=== PATIENT | female | born 1980 | race Two or more races ===

== ENCOUNTER 2019-08-11 12:38 | Emergency (ER) | payer SELFPAY ==
[~2019-08-11] VITALS: Ht 165.1 cm; Wt 73.5 kg
[~2019-08-11 12:38] MED LIST: METF500T PO
[2019-08-11 12:45] VITALS: BP 126/79
--- NOTE | 2019-08-11 12:47 | NUR ---
SEEN AND EXAMINED BY FER REDDY
[2019-08-11] MEDS ORDERED: TDAP [DIPH/PERTUSSIS/TET] 0.5 ML VIAL IM ONE ×2 (12:53→13:00)
--- NOTE | 2019-08-11 13:10 | NUR ---
WOUND DRESSING DONE BY [employer].
--- NOTE | 2019-08-11 13:15 | NUR ---
Patient discharged to home in stable condition. Written and verbal after care instructions given. Patient verbalizes understanding of instruction.
== END 2019-08-11 13:23 | disposition home or self-care (01) ==
LOC: ER 12:40
DX: S61.211A Laceration without foreign body of left index finger without damage to nail, initial encounter (principal); E11.9 Type 2 diabetes mellitus without complications; Z79.899 Other long term (current) drug therapy; W26.0XXA Contact with knife, initial encounter; Y93.89 Activity, other specified; Y92.89 Other specified places as the place of occurrence of the external cause; Y99.8 Other external cause status
CPT/HCPCS: 90715

== ENCOUNTER 2020-07-18 07:37 | Emergency (ER) | payer SELFPAY ==
[~2020-07-18] VITALS: Ht 165.1 cm; Wt 70.8 kg
--- NOTE | 2020-07-18 07:50 | NUR ---
PT BIB SELF C/O PAIN AND BURNING UPON URINATION THAT STARTED 'A COUPLE OF DAYS AGO', PT IS AFEBRILE. DENIES NAUSEA AND VOMITING. VS CHECKED. AWAITING MD LONGORIA.
--- NOTE | 2020-07-18 08:00 | NUR ---
PT SEEN BY
[2020-07-18 09:46] LABS: APPEARANCE,URINE SL CLOUDY (CLEAR); BILIRUBIN,URINE NEGATIVE (NEGATIVE); BLOOD, URINE NEGATIVE Ery/uL (NEGATIVE); COLOR,URINE YELLOW (YELLOW); LEUKOCYTE ESTERASE ,URINE TRACE (NEGATIVE); NITRITE, URINE NEGATIVE (NEGATIVE); PROTEIN,URINE NEGATIVE (NEGATIVE); UGLUCOSE >=1000 mg/dL (NEGATIVE)
[2020-07-18 10:09] LABS: RBC,URINE 0-2 /HPF (0-2); SQUAMOUS EPITHELIAL CELL,UR Few /HPF (None Seen); WBC,URINE 21-50 /HPF (0-3)
[2020-07-18 10:10] LABS: BACTERIA,URINE Rare /HPF (None Seen)
--- NOTE | 2020-07-18 10:44 | NUR ---
Patient discharged to home in stable condition. Written and verbal after care instructions given. Patient verbalizes understanding of instruction.
[2020-07-18 10:45] VITALS: BP 129/81
== END 2020-07-18 10:46 | disposition home or self-care (01) ==
LOC: ER 07:40
DX: N39.0 Urinary tract infection, site not specified (principal); E11.9 Type 2 diabetes mellitus without complications; Z79.84 Long term (current) use of oral hypoglycemic drugs
CPT/HCPCS: 81000-TC; 84703-TC; 87086-TC

== ENCOUNTER 2020-08-20 21:00 | Inpatient (IN) | payer MEDICAID ==
[~2020-08-20] VITALS: Ht 162.6 cm; Wt 64.0 kg
--- NOTE | 2020-08-20 21:14 | NUR ---
LORIE 89 FROM HOME FOR C/O CP AND SOB , TESTED + FOR COVID LAST WK +N/V, PT AAOX4, PLACED ON MONITOR, VSS, NAD NOTED PENDING ER PROVIDER SWATI
[2020-08-20] MEDS ORDERED: DEXAMETHASONE SOD PHOSPHATE 10 MG/ML VIAL ONE (22:23)
[2020-08-20] MEDS ORDERED: ACETAMINOPHEN ES 500 MG TABLET ONE (22:24)
[2020-08-20] MEDS ORDERED: DEXAMETHASONE SOD PHOSPHATE 10 MG/ML VIAL IV ONE (22:30)
[2020-08-20] MEDS ORDERED: ACETAMINOPHEN ES 500 MG TABLET PO ONE (22:30)
[2020-08-20] MEDS ORDERED: IV NS 0.9% 1,000 ML BAG IV ONE (22:30)
[2020-08-20 22:46] LABS: BASOPHILS % (AUTO) 0.4 % (0.0-2.0); HEMATOCRIT 51 % (33-45); HEMOGLOBIN 16.2 g/dL (11.5-14.8); LYMPHOCYTES # (AUTO) 0.7 /CMM (0.8-4.8); LYMPHOCYTES % (AUTO) 10.1 % (20.0-44.0); MEAN CORPUSCULAR HGB CONC 32 g/dl (31.0-36.0); MEAN CORPUSCULAR VOLUME 95 fL (82-100); MONOCYTES # (AUTO) 0.5 /CMM (0.1-1.30); NEUTROPHILS # (AUTO) 5.5 /CMM (1.8-8.9); NEUTROPHILS % (AUTO) 82.5 % (43.0-81.0); PLATELET COUNT (AUTO) 271 /CMM (150-450); WHITE BLOOD COUNT (AUTO) 6.6 K/uL (4.3-11.0)
[2020-08-20 23:12] LABS: ALANINE AMINOTRANSFERASE 17 U/L (12-78); ALBUMIN 3.2 g/dL (3.4-5.0); ALKALINE PHOSPHATASE 110 U/L (46-116); ASPARTATE AMINOTRANSFERASE 18 U/L (15-37); B-TYPE NATRIURETIC PEPTIDE 36 PG/ML (0-125); BILIRUBIN,DIRECT 0.1 mg/dL (0.0-0.2); BILIRUBIN,TOTAL 0.4 mg/dL (0.2-1.0); CALCIUM, SERUM 9.1 mg/dL (8.5-10.1); CHLORIDE 100 mmol/L (98-107); CREATININE 0.8 mg/dL (0.6-1.3); POTASSIUM 4.5 mmol/L (3.5-5.1); SODIUM SERUM 135 mmol/L (136-145); TOTAL PROTEIN, SERUM 8.8 g/dL (6.4-8.2); UREA NITROGEN, BLOOD 9 mg/dL (7-18)
[2020-08-20 23:14] LABS: CARBON DIOXIDE 10 mmol/L (21-32); GLUCOSE 384 mg/dL (74-106)
[2020-08-20] MEDS ORDERED: INSULIN REGULAR, HUMAN 100 UNIT in IV NS 0.9% 99 ML IV PRN ×2 (23:30)
[2020-08-20 23:38] LABS: BILIRUBIN,URINE SMALL (NEGATIVE); BLOOD, URINE Trace-lysed Ery/uL (NEGATIVE); COLOR,URINE YELLOW (YELLOW); LEUKOCYTE ESTERASE ,URINE Negative (NEGATIVE); NITRITE, URINE Negative (NEGATIVE); PH,URINE 5.5 (5.0-8.0); PROTEIN,URINE >=300 mg/dl (NEGATIVE); UGLUCOSE 500 MG/DL mg/dL (NEGATIVE); UROBILINOGEN,URINE 0.2 EU/dL (0.2)
[2020-08-21] VITALS (39 sets, daily range): BP systolic 97–141; BP diastolic 59–98
[2020-08-21 00:02] LABS: BACTERIA,URINE Rare /HPF (None Seen); SQUAMOUS EPITHELIAL CELL,UR Few /HPF (None Seen); WBC,URINE NONE SEEN /HPF (0-3)
--- NOTE | 2020-08-21 00:02 | NUR ---
REGULAR INSULIN OUT OF STOCK IN [facility]MN[facility]
--- NOTE | 2020-08-21 01:22 | NUR ---
Call from lab, rapid covid positive.
--- NOTE | 2020-08-21 03:45 | NUR ---
ICU/RN-ADMITTED THIS 39 Y/O FEMALE FROM ER ACCOMPANIED BY ER STAFF PER ACLS PROTOCOL. NURSING FOCUS, ALTERED NUTRITION AND RESPIRATORY STATUS R/T DIAGNOSIS:DKA, COVID 19. AWAKE, ALERT EXPRESSIVE OF NEEDS. BREATHING COMES EASY ON ROOM AIR, SATS.-97%. EKG ST W/ HR-111/MIN. BP-136/78.AFEBRILE-97.7/F. DENIES SOB OR PAIN. PT. IS A FULL CODE.ON CONTACT AND DROPLET PRECAUTIONS, OBSERVED. ON INSULIN DRIP AT 7 UNITS/HR. PER PROTOCOL.
--- NOTE | 2020-08-21 03:52 | NUR ---
pt transported to icu. report given to eliot vora for vahid
[2020-08-21] MEDS ORDERED: HYDROCODONE/APAP 5/325MG TABLET PO PRN (04:00)
[2020-08-21] MEDS ORDERED: MAGNESIUM HYDROXIDE 30 ML UDC PO PRN (04:00)
[2020-08-21] MEDS ORDERED: MAG HYDROX/AL HYDROX/SIMETH 30 ML UDC PO PRN (04:00)
[2020-08-21] MEDS ORDERED: ACETAMINOPHEN 325 MG TABLET PO PRN (04:00)
[2020-08-21] MEDS ORDERED: Z GUARD REMEDY 2 OZ OINT TP PRN (04:00)
[2020-08-21] MEDS: BLOOD SUGAR DIAGNOSTIC 1 EACH STRIP IN SCH ×20 (04:22→23:06)
[2020-08-21] MEDS ORDERED: CEFTRIAXONE 1 G VIAL ONE (04:30)
[2020-08-21] MEDS ORDERED: IV NS 0.9% 250 ML IV PRN (04:30)
[2020-08-21] MEDS ORDERED: IV D5/0.45 NACL 1,000 ML IV PRN (04:30)
[2020-08-21] MEDS: ENOXAPARIN SODIUM 40 MG/0.4 ML DISP.SYRIN SQ SCH (04:32)
[2020-08-21] MEDS: CEFTRIAXONE 1 G in IV D5W 50 ML IV SCH (04:33)
[2020-08-21] MEDS ORDERED: POTASSIUM CL. PREMIX PERIPHER. 50 ML IV PRN (05:00)
[2020-08-21] MEDS: INSULIN REGULAR, HUMAN 100 UNIT in IV NS 0.9% 99 ML IV PRN ×4 (05:10→12:26)
[2020-08-21] MEDS ORDERED: AZITHROMYCIN 500 MG VIAL ONE (05:11)
[2020-08-21] MEDS: IV D5/0.45 NACL 1,000 ML IV PRN ×3 (05:11→23:52)
[2020-08-21] MEDS: AZITHROMYCIN 500 MG in IV D5W 250 ML IV SCH (05:20)
[2020-08-21 05:36] LABS: CALCIUM, SERUM 8.4 mg/dL (8.5-10.1); CREATININE 0.7 mg/dL (0.6-1.3); POTASSIUM 3.7 mmol/L (3.5-5.1)
[2020-08-21] MEDS: ONDANSETRON HCL/PF 4 MG/2 ML VIAL IVP PRN (06:20)
--- NOTE | 2020-08-21 06:21 | NUR ---
ICU/RN-PT. VERY NAUSEATED, MEDICATED W/ ZOFRAN 4MG SIVP. WILL REASSESS FOR PRN EFFECTIVENESS
--- NOTE | 2020-08-21 07:25 | NUR ---
ICU/RN PT IS ON RA ,SAT O2-98%.V/S STABKLE ,AFEBRILE.COVID-19 POSITIVE.HAS DKA ON INSULIN DRIP .PERIFERAL IV ORDERED.USE BEDPAN.RESTING IN THE BED.NO NAUSEA.NO PAIN REPORTED AT THIS TIME.LABS REVIEW.
[2020-08-21] MEDS ORDERED: GLIM4TAB37 PO (07:28)
[2020-08-21] MEDS ORDERED: DEXAMETHASONE SOD PHOSPHATE 10 MG/ML VIAL IJ SCH (09:00)
--- NOTE | 2020-08-21 09:00 | NUR ---
ICU/RN DUE MEDS ARE GIVEN ORDERED.PT EAT HER BREAKFAST.
[2020-08-21] MEDS: POTASSIUM CL. PREMIX PERIPHER. 50 ML IV PRN ×8 (10:25→22:48)
[2020-08-21 12:28] LABS: CALCIUM, SERUM 8.2 mg/dL (8.5-10.1); CREATININE 0.6 mg/dL (0.6-1.3); POTASSIUM 3.4 mmol/L (3.5-5.1)
[2020-08-21 18:08] LABS: CALCIUM, SERUM 8.4 mg/dL (8.5-10.1); CREATININE 0.7 mg/dL (0.6-1.3); POTASSIUM 3.5 mmol/L (3.5-5.1)
--- NOTE | 2020-08-21 19:30 | NUR ---
RN NOTE RECEIVED PATIENT IN BED RESTING ALERT ORIENTED X4 VERBALLY RESPONSIVE NO SOB NOT ACUTE DISTRESS NOTED,ON ROOM AIR O2:97% IV SITE IS ON RIGHT AC AND LEFT AC INTACT PATENT FLUSHED ON INSULIN DRIP 12UNIT/HR ON D51/2 NS IV HYDRATION 100CC/HR EVERY HOUR BLOOD SUGAR CHECK,ON ALGORITHM #4 ON POTASSIUM IV,CONTINENT TO BOWEL/BLADDER,CALL LIGHT WITHIN REACH,BED IN LOW POSITION AND LOCKED CONTINUE TO MONITOR
--- NOTE | 2020-08-21 20:00 | NUR ---
RN NOTE BS IS 289 INSULIN RUNNING 12UNIT/HR NO CHANGES IN RATE CONTINUE TO MONITOR.
--- NOTE | 2020-08-21 21:00 | NUR ---
RN NOTE ACCU-CHEK DONE BLOOD SUGAR IS 242 INSULIN DECREASED TO 7UNIT/HR CONTINUE TO MONITOR.
--- NOTE | 2020-08-21 22:00 | NUR ---
RN NOTE ACCU-CHEK DONE BLOOD SUGAR IS 204 INSULIN 7UNIT/HR RUNNING CONTINUE TO MONITOR.
--- NOTE | 2020-08-21 23:00 | NUR ---
RN NOTE ACCU-CHEK DONE BLOOD SUGAR IS 205 INSULIN DRIP IS 7UNIT/HR CONTINUE TO MONITOR
[2020-08-21 23:30] LABS: CREATININE 0.6 mg/dL (0.6-1.3); POTASSIUM 3.7 mmol/L (3.5-5.1)
[2020-08-22] VITALS (28 sets, daily range): BP systolic 83–125; BP diastolic 54–95
[2020-08-22] MEDS: BLOOD SUGAR DIAGNOSTIC 1 EACH STRIP IN SCH ×13 (00:14→11:51)
[2020-08-22] MEDS: POTASSIUM CL. PREMIX PERIPHER. 50 ML IV PRN ×2 (01:28→11:51)
[2020-08-22] MEDS: CEFTRIAXONE 1 G in IV D5W 50 ML IV SCH (04:14)
[2020-08-22] MEDS: AZITHROMYCIN 500 MG in IV D5W 250 ML IV SCH (04:17)
[2020-08-22] MEDS: INSULIN REGULAR, HUMAN 100 UNIT in IV NS 0.9% 99 ML IV PRN ×4 (04:25→09:09)
[2020-08-22 04:34] LABS: BASOPHILS % (AUTO) 0.5 % (0.0-2.0); HEMATOCRIT 41 % (33-45); HEMOGLOBIN 13.6 g/dL (11.5-14.8); LYMPHOCYTES # (AUTO) 1.2 /CMM (0.8-4.8); LYMPHOCYTES % (AUTO) 12.9 % (20.0-44.0); MEAN CORPUSCULAR HGB CONC 34 g/dl (31.0-36.0); MEAN CORPUSCULAR VOLUME 90 fL (82-100); MONOCYTES # (AUTO) 0.7 /CMM (0.1-1.30); MONOCYTES % (AUTO) 8.3 % (2.0-12.0); NEUTROPHILS % (AUTO) 78.3 % (43.0-81.0); PLATELET COUNT (AUTO) 272 /CMM (150-450); RED BLOOD CELL COUNT(AUTO) 4.52 MIL/uL (4.0-5.2); WHITE BLOOD COUNT (AUTO) 8.9 K/uL (4.3-11.0)
[2020-08-22 04:51] LABS: CALCIUM, SERUM 8.2 mg/dL (8.5-10.1); CREATININE 0.5 mg/dL (0.6-1.3); MAGNESIUM 1.9 mg/dL (1.8-2.4); PHOSPHORUS 1.1 mg/dL (2.5-4.9); POTASSIUM 3.6 mmol/L (3.5-5.1)
--- NOTE | 2020-08-22 07:15 | NUR ---
RN NOTE PATIENT REMAINS ALERT ORIENTED X4 VERBALLY RESPONSIVE ON ROOM AIR O2:98% NO SON NOT ACUTE DISTRESS NOTED ON INSULIN DRIP CHECKED BLOOD SUGAR EVERY HOUR,ALL DUE MEDS GIVEN MD ORDERED,KEPT CLEAN AND DRY ALL THE TIME,KEPT COMFORTABLE,ALL NEEDS MET ENDORSE NEXT COMING SHIFT FOR CONTINUATION OF CARE.
--- NOTE | 2020-08-22 07:50 | NUR ---
ICU/RN PT IS RESTING IN THE BED ON ROOM AIR,SAT O2-97%.V/S STABLE,AFEBRILE.NO PAIN REPORTED AT THIS TIME.ON INSULIN DRIP .ANION GAP 15.IV INFUSING ORDERED.
[2020-08-22] MEDS: ONDANSETRON HCL/PF 4 MG/2 ML VIAL IVP PRN ×2 (08:28→13:30)
[2020-08-22] MEDS: ENOXAPARIN SODIUM 40 MG/0.4 ML DISP.SYRIN SQ SCH (08:28)
--- NOTE | 2020-08-22 08:30 | NUR ---
ICU/RN PT C/O OF NAUSEA.ZOFRAN IV GIVEN ORDERED.
[2020-08-22] MEDS: IV D5/0.45 NACL 1,000 ML IV PRN (10:59)
[2020-08-22 11:33] LABS: CALCIUM, SERUM 7.9 mg/dL (8.5-10.1); CREATININE 0.6 mg/dL (0.6-1.3)
[2020-08-22] MEDS ORDERED: DEXTROSE 50%-WATER 50 ML DISP.SYRIN IV PRN (12:00)
[2020-08-22] MEDS: BLOOD SUGAR DIAGNOSTIC 1 EACH STRIP VI SCH ×3 (12:18→22:24)
[2020-08-22] MEDS: POTASSIUM CL. PREMIX PERIPHER. 50 ML IV SCH ×5 (12:18→16:00)
--- NOTE | 2020-08-22 12:30 | NUR ---
ICU/RN PT TRANSFERED TO TELE UNIT IN STABLE CONDITION.OFF INSULIN DRIP.DUE MEDS ARE GIVEN ORDERED.
[2020-08-22] MEDS: POTASSIUM PHOSPHATE MM 15 MMOL in IV NS 0.9% 250 ML IV SCH ×2 (12:33→16:41)
[2020-08-22] MEDS: INSULIN REGULAR, HUMAN 100 UNIT/ML 3 ML VIAL SQ PRN ×2 (12:33→18:37)
--- NOTE | 2020-08-22 12:45 | NUR ---
RN NOTES RECEIVED PT FROM ICU. A/O X4. IV SITES ON R AC, L AC AND CARRI MIDLINE ALL INTACT, PATENT AND FLUSHED. DIABETIC DIET. NO PAIN REPORTED AT THIS TIME. ON RA SATURATING @100%. NO SOB OR ANY ACUTE DISTRESS AT THIS TIME. SAFETY MEASURES IN PLACE. CALL LIGHT WITHIN REACH. BED LOCKED AND AT LOWEST POSITION WITH SIDE RAILS UP X2. WILL CONTINUE TO MONITOR
--- NOTE | 2020-08-22 13:56 | NUR ---
RELAYED POSITIVE PCR RESULT RELAYED TO TESHA MANCINI
[2020-08-22 14:47] LABS: CREATININE 0.5 mg/dL (0.6-1.3); POTASSIUM 3.6 mmol/L (3.5-5.1)
--- NOTE | 2020-08-22 20:00 | NUR ---
RN NOTES PT RESTING IN BED. A/O X4. IV SITES ON R AC, L AC AND CARRI MIDLINE ALL INTACT, PATENT AND FLUSHED. NO PAIN REPORTED AT THIS TIME. ON RA SATURATING @100%. NO SOB OR ANY ACUTE DISTRESS AT THIS TIME.BLOOD SUGAR OF 265, 9 UNITS INSULIN GIVEN PER SLIDING SCALE. SAFETY MEASURES IN PLACE. CALL LIGHT WITHIN REACH. BED LOCKED AND AT LOWEST POSITION WITH SIDE RAILS UP X2. WILL ENDORSE TO NIGHT NURSE FOR SERAFIN
--- NOTE | 2020-08-22 20:05 | NUR ---
RN OPENING NOTES PATIENT IN BED, ALERT AND ORIENTED X 4. DENIES ANY SOB, O2 SAT AT 98 % ON ROOM AIR. ON TELE MONITOR SHOWS SR HR 85. DENIES PAIN AT THIS TIME. WITH RIGHT UPPER ARM MIDLINE AND LEFT AC IV BOTH PATENT AND INTACT, FLUSHED, NO SIGNS OF INFECTION. ALL SAFETY MEASURES IMPLEMENTED. CALL LIGHT WITHIN REACH, BED LOCKED IN LOWEST POSITION SIDE RAILS UP X 2.
[2020-08-22] MEDS ORDERED: INSULIN GLARGINE, 100 UNIT/ML CARTRIDGE SQ SCH (22:00)
--- NOTE | 2020-08-22 22:30 | NUR ---
2230 PATIENT WITH COMPLAIN OF COUGHING AND IS REQUESTING FOR COUGH MEDICATION,SOMMER CHAPMAN MADE AWARE WITH ORDER MADE. ORDER NOTED AND CARRIED OUT.
[2020-08-22] MEDS: *INSULIN REGULAR(HUMULIN R)HUM 100 UNIT/ML VIAL SQ PRN (22:31)
[2020-08-23] MEDS ORDERED: GUAIFENESIN/D-METHORPHAN HB 5 ML UDC ONE (00:43)
[2020-08-23] MEDS: GUAIFENESIN/D-METHORPHAN HB 5 ML UDC PO PRN ×2 (01:05→15:40)
--- NOTE | 2020-08-23 01:05 | NUR ---
ROBUTISSIN DM 10 ML GIVEN TO PATIENT DUE TO COUGH.
[2020-08-23] MEDS: CEFTRIAXONE 1 G in IV D5W 50 ML IV SCH (03:52)
[2020-08-23 04:00] VITALS: BP 107/67
[2020-08-23] MEDS: AZITHROMYCIN 500 MG in IV D5W 250 ML IV SCH (04:35)
[2020-08-23] MEDS: ONDANSETRON HCL/PF 4 MG/2 ML VIAL IVP PRN ×2 (04:56→09:11)
[2020-08-23] MEDS ORDERED: POTASSIUM CL. PREMIX PERIPHER. 50 ML IV PRN ×2 (06:00)
[2020-08-23 07:05] LABS: BASOPHILS % (AUTO) 0.7 % (0.0-2.0); EOSINOPHILS % (AUTO) 0.3 % (0.0-6.0); HEMATOCRIT 39 % (33-45); LYMPHOCYTES % (AUTO) 15.9 % (20.0-44.0); MEAN CORPUSCULAR HGB CONC 33 g/dl (31.0-36.0); MEAN CORPUSCULAR VOLUME 90 fL (82-100); MONOCYTES # (AUTO) 0.8 /CMM (0.1-1.30); MONOCYTES % (AUTO) 12.7 % (2.0-12.0); NEUTROPHILS # (AUTO) 4.6 /CMM (1.8-8.9); NEUTROPHILS % (AUTO) 70.4 % (43.0-81.0); PLATELET COUNT (AUTO) 259 /CMM (150-450); RED BLOOD CELL COUNT(AUTO) 4.32 MIL/uL (4.0-5.2); WHITE BLOOD COUNT (AUTO) 6.6 K/uL (4.3-11.0)
[2020-08-23 07:20] LABS: CALCIUM, SERUM 8.1 mg/dL (8.5-10.1); CREATININE 0.4 mg/dL (0.6-1.3); MAGNESIUM 1.8 mg/dL (1.8-2.4); POTASSIUM 3.7 mmol/L (3.5-5.1)
--- NOTE | 2020-08-23 07:24 | NUR ---
RN NOTES PATIENT IN BE SLEEPING, EASILY AROUSABLE BY VERBAL AND TOUCH STIMULI. BREATHING EVEN AND UNLABORED. DENIES SOB. ALL DUE IV ATB GIVEN ORDERED NO ADVERSE SIDE EFFECTS NOTED. CARRI MIDLINE AND LEFT AC G 2O PATENT AND INTACT, NO SINGS OF INFILTRATION NO INFECTION. KEPT CLEAN AND DRY. ALL SAFETY MEASURES IMPLEMENTED PER PROTOCOL. SIDE RAILS UP. BED LOCKED IN LOWEST POSITION. CALL LIGHT WITHIN REACH.
--- NOTE | 2020-08-23 07:30 | NUR ---
RN OPENING NOTES PT IN BED AWAKE , A/Ox4, BREATHING ON RA WITH NO SIGNS OF RESP DISTRESS OR SOB; BREATHING EVEN AND UNLABORED. PT HAS A CARRI MIDLINE AND LAC #20 BOTH FLUSHED, PATENT AND INTACT WITH NO SIGNS OF INFILTRATION OR INFECTION. PT DENIES PAIN AT THIS TIME. SAFETY PRECAUTIONS IN PLACE, BED LOCKED AND IN LOWEST POSITION, CALL LIGHT WITHIN REACH, SR UPx2. WILL CONTINUE TO MONITOR
[2020-08-23 08:00] VITALS: BP 101/66
[2020-08-23] MEDS: BLOOD SUGAR DIAGNOSTIC 1 EACH STRIP VI SCH ×4 (08:35→22:07)
[2020-08-23] MEDS: ENOXAPARIN SODIUM 40 MG/0.4 ML DISP.SYRIN SQ SCH (09:12)
[2020-08-23] MEDS: INSULIN REGULAR, HUMAN 100 UNIT/ML 3 ML VIAL SQ PRN ×3 (09:13→18:11)
--- NOTE | 2020-08-23 11:45 | NUR ---
RN NOTE PT RESTING IN BED COMFORTABLY. NO SIGNS OF RESP DISTRESS OR SOB. BREATHING UNLABORED AND EVEN. WILL CONTINUE TO MONITOR
[2020-08-23 16:00] VITALS: BP 95/65
--- NOTE | 2020-08-23 16:15 | NUR ---
RN NOTE PT RESTING IN BED COMFORTABLY. NO SIGNS OF RESP DISTRESS OR SOB
--- NOTE | 2020-08-23 19:00 | NUR ---
RN CLOSING NOTE PT IN STABLE CONDITION, NO SIGNS OF RESP DISTRESS OR SOB, BREATHING UNLABORED AND EVEN. PT IV LINES INTACT, FLUSHED AND SL WITH NO SIGNS OF INFECTION OR INFILTRATION. PT SAFETY MEASURES IN PLACE, BED LOCKED AND IN LOWEST POSITION, SR UP x2, CALL LIGHT WITHIN REACH. WILL ENDORSE SERAFIN TO ONCOMING NURSE
--- NOTE | 2020-08-23 19:58 | NUR ---
MS RN NOTES RECEIVED PATIENT AWAKE IN BED, ALERT/ORIENTED x4, BREATHING EVEN AND UNLABOED. ON RA WITH NO SIGNS OF ACUTE RESPIRATORY DISTRESS OR SOB; PT HAS A CARRI MIDLINE AND LAC #20 BOTH FLUSHED, PATENT AND INTACT WITH NO SIGNS OF INFILTRATION OR INFECTION. PT DENIES PAIN AT THIS TIME. SAFETY PRECAUTIONS IN PLACE, BED LOCKED AND IN LOWEST POSITION, CALL LIGHT WITHIN EASY REACH, SR UPx2. ALL NEEDS ANTICIPATED. WILL CONTINUE TO MONITOR ACCORDINGLY.
[2020-08-23] MEDS ORDERED: INSULIN GLARGINE, 100 UNIT/ML CARTRIDGE SQ SCH (22:00)
[2020-08-23] MEDS: *INSULIN REGULAR(HUMULIN R)HUM 100 UNIT/ML VIAL SQ PRN (22:19)
[2020-08-24 00:26] VITALS: BP 97/67
[2020-08-24] MEDS: CEFTRIAXONE 1 G in IV D5W 50 ML IV SCH (03:46)
[2020-08-24] MEDS: AZITHROMYCIN 500 MG in IV D5W 250 ML IV SCH (04:48)
[2020-08-24] MEDS: ONDANSETRON HCL/PF 4 MG/2 ML VIAL IVP PRN (05:03)
--- NOTE | 2020-08-24 07:30 | NUR ---
RN OPENING NOTE PT IN BED AWAKE , A/Ox4. PT BREATHING ON RA EVEN AND UNLABORED WITH NO SIGNS OF RESP DISTRESS OR SOB. PT HAS A CARRI MIDLINE AND LAC #20 BOTH PATENT FLUSHED AND INTACT WITH NO SIGNS OF INFECTION OR INFILTRATION. PT DENIES PAIN AT THIS TIME. SAFETY MEASURES IN PLACE, BED LOCKED AND IN LOWEST POSITION, SR UPx2, CALL [place] WITHIN REACH. WILL CONTINUE TO MONITOR
[2020-08-24 08:00] VITALS: BP 108/65
[2020-08-24] MEDS: BLOOD SUGAR DIAGNOSTIC 1 EACH STRIP VI SCH ×3 (08:10→16:50)
[2020-08-24] MEDS: INSULIN REGULAR, HUMAN 100 UNIT/ML 3 ML VIAL SQ PRN ×2 (09:29→12:48)
[2020-08-24] MEDS: ENOXAPARIN SODIUM 40 MG/0.4 ML DISP.SYRIN SQ SCH (09:29)
[2020-08-24] MEDS ORDERED: ZOLP5TAB2 PO (09:42)
[2020-08-24] MEDS ORDERED: GUAI-671 PO (09:42)
[2020-08-24] MEDS ORDERED: INSU100V7 SQ (09:42)
--- NOTE | 2020-08-24 12:30 | NUR ---
RN NOTE PT RESTING IN BED COMFORTABLY, NO SIGNS OF SOB OR RESP DISTRESS
--- NOTE | 2020-08-24 15:15 | NUR ---
RN NOTE PT RESTING IN BED COMFORTABLY WITH NO SIGNS OF RESP DISTRESS OR SOB
[2020-08-24 16:00] VITALS: BP 100/69
[2020-08-24] MEDS ORDERED: INFLUENZA VACCINE 2020-21 0.5 ML DISP.SYRIN IM ONE (16:30)
[2020-08-24] MEDS: GUAIFENESIN/D-METHORPHAN HB 5 ML UDC PO PRN (17:47)
--- NOTE | 2020-08-24 19:10 | NUR ---
PROFILE GRINDER NOTE PT IN STABLE CONDITION. PT LAC #20 AND CARRI MIDLINE IV'S REMOVED, NO BLEEDING NOTED. PT DISCHARGE INSTRUCTIONS, MEDICATIONS, AND COVID ISOLATION PROCEDURE DISCUSSED WITH PT AND PT ACKNOWLEDGED UNDERSTANDING OF INSTRUCTIONS. ALL PT BELONGINGS WITH PT. ALL DOCUMENTS SIGNED BY PT AND DISCHARGE PACKET GIVEN TO PT. TOOK PT OUT IN WHEELCHAIR WHERE PT WAS PICKED UP BY
== END 2020-08-24 19:10 | disposition home or self-care (01) | DRG 137 ==
LOC: ER 21:00 → ICU 08-21 02:30 → TELE1 08-22 13:01 → MEDSG1 08-22 14:54
PROVIDERS: ADMIT Internal Medicine; ATTEND Nurse Practitioner Acute Care
DX: U07.1 COVID-19 (principal); E43 Unspecified severe protein-calorie malnutrition; E11.10 Type 2 diabetes mellitus with ketoacidosis without coma; G93.41 Metabolic encephalopathy; J12.89 Other viral pneumonia; J96.01 Acute respiratory failure with hypoxia; N17.0 Acute kidney failure with tubular necrosis; Z79.84 Long term (current) use of oral hypoglycemic drugs; E83.39 Other disorders of phosphorus metabolism; E87.6 Hypokalemia; R77.1 Abnormality of globulin; J15.9 Unspecified bacterial pneumonia
CPT/HCPCS: 36415; 71045-TC; 80048-TC; 80061-TC; 80076-TC; 81001; 82728-TC; 82962-TC; 83605-TC; 83615-TC; 83735-TC; 83880; 84100-TC; 84484-TC; 84703-TC; 85025-TC; 85378-TC; 85730-TC; 86140-TC; 87040-TC; 87081-TC; 87086-TC; C9803; G0378; J0456; J0696; J1100; J1650; J1815; J2405; J3480; J3490; J7030; J7040; J7050; J7060; Q2036; U0003

== ENCOUNTER 2023-05-07 19:40 | Emergency (ER) | payer MEDICAID, OTHER ==
[~2023-05-07] VITALS: Ht 167.6 cm; Wt 81.6 kg
[~2023-05-07 19:40] MED LIST changes: +GLIM4TAB37 PO; +GUAI-671 PO; +INSU100V7 SQ; +ZOLP5TAB2 PO
[2023-05-07] MEDS ORDERED: FAMOTIDINE (20 MG) 20 MG TABLET ONE (22:00)
[2023-05-07] MEDS ORDERED: FAMO20TA8 PO (22:02)
[2023-05-07] MEDS: FAMOTIDINE (20 MG) 20 MG TABLET PO ONE (22:07)
[2023-05-07] MEDS: MAGNESIUM CITRATE 296 ML BOTTLE PO ONE (22:50)
[2023-05-07 22:51] VITALS: BP 100/63; TEMP 98.5; O2SAT 97
== END 2023-05-07 22:51 | disposition home or self-care (01) ==
LOC: ER 19:44
DX: K59.00 Constipation, unspecified (principal); E11.9 Type 2 diabetes mellitus without complications; Z90.89 Acquired absence of other organs; Z79.4 Long term (current) use of insulin; Z79.899 Other long term (current) drug therapy

== ENCOUNTER 2023-10-04 17:32 | Emergency (ER) | payer OTHER ==
[~2023-10-04] VITALS: Ht 167.6 cm; Wt 77.1 kg
[~2023-10-04 17:32] MED LIST changes: +FAMO20TA8 PO
[2023-10-04] MEDS ORDERED: OXYM15MI4 NS (21:30)
[2023-10-04] MEDS ORDERED: FLUT9.9S NS (21:30)
[2023-10-04 21:47] VITALS: BP 124/74; TEMP 98.1; O2SAT 99
== END 2023-10-04 21:47 | disposition home or self-care (01) ==
LOC: ER 17:43
DX: B34.9 Viral infection, unspecified (principal); E11.9 Type 2 diabetes mellitus without complications; Z90.89 Acquired absence of other organs; Z79.84 Long term (current) use of oral hypoglycemic drugs; Z79.899 Other long term (current) drug therapy